=== PATIENT | female | born 1955 | race Caucasian/White ===

== ENCOUNTER → 2020-04-20 | Day surgery (SDC) | payer OTHER ==
[~2020-04-20] VITALS: Ht 149.9 cm; Wt 80.7 kg
[~2020-04-20] MED LIST: ABILIFY 2 MG2 M1 PO; ACETAMINOPHEN-1 EAC2 PO; CETIRIZINE HCL10 MG PO; FLONASE 0.05%50 MCG NARES; METHOCARBAMOL750 MG PO; NEURONTIN 300M300 M2 PO; NORVASC5 MG PO; NYSTATIN 100,0015 G1 TOP; PERIDEX 0.12%473 M1 PO; PRAZOSIN HCL1 MG PO; PRINIVIL20 MG PO; PROTONIX40 M2 PO; ROPINIROLE HCL3 MG PO; SERTRALINE HCL100 MG PO
--- NOTE | ~2020-04-20 | O ---
[facility] [place] [address] OPERATIVE REPORT Name: SAVANA SMITH Room #: REG [facility]#: [id number] Admission: 04/20/20 Attend Phys: Pablito Rothman MD Discharge: Date of : 51 Report #: [id number] THIS REPORT FOR: cc: FAM - Family physician unknown FAM - Family physician unknown Pablito Rothman MD ~ CC: [facility] unknown Caity Rothman DATE OF SERVICE: 04/20/2020 SURGEON: Pabilto Rothman MD PRODUCTION CONTROL PEGBOARD CLERK: None. PREOPERATIVE DIAGNOSIS: Nasolacrimal duct obstruction. POSTOPERATIVE DIAGNOSIS: Nasolacrimal duct obstruction. OPERATIONS PERFORMED: Right-sided incisional dacryocystorhinostomy with silicone intubation and video endoscopy. ANESTHESIA: General. COMPLICATIONS: None. INDICATIONS FOR PROCEDURE: This patient has an acquired nasolacrimal duct obstruction with chronic tearing and discharge. The current procedures are undertaken in order to improve the patient's level of comfort and visual clarity and to reduce the risk of recurrent infection. Informed consent was obtained to include but not limited to the potential risk for loss of vision, bleeding, infection, failure to improve the problem, scarring and the potential need for further surgery. DESCRIPTION OF OPERATION: The patient was taken to the operating room, where general anesthesia was administered. The medial canthal area was then generously infiltrated with 2% Xylocaine with epinephrine mixed with equal parts of 0.75% Marcaine with Wydase. The same anesthetic mixture was then used to anesthetize the lateral wall of the nose. The middle meatus was then packed with Afrin-soaked Cottonoids. The patient was subsequently prepped and draped in the usual sterile fashion. A skin-marking pen was then used to outline an incision over the anterior [facility] [address] [place] [address] OPERATIVE REPORT Name: SARAHSAVANA Room #: [facility] [id number] Admission: 04/20/20 Attend Phys: Pablito Rothman MD Discharge: Date of : 51 Report #: [id number] lacrimal crest inferiorly in the medial canthal area. The incision was then made with a 15 blade. The dissection was then carried down through the soft tissue until the periosteum was identified. Hemostasis was achieved with diligent monopolar cautery. The periosteum was then incised over the anterior lacrimal crest and then gently reflected laterally out of the lacrimal sac fossa. The lacrimal sac was retracted and the thin bone of the lacrimal sac fossa was gently infractured with a hemostat. Multiple rongeur bites were then used to create an osteotomy that was approximately 1.5 cm in diameter. The nasal mucosa was then injected with the same anesthetic mixture used at the beginning of the case. The nasal mucosa was then incised and an anteriorly hinged nasal mucosal flap made. The flap was drawn out of the field with interrupted 4-0 chromic sutures. The puncta were then dilated with a double-ended punctum dilator. Parsons tubes were then passed into the lacrimal sac and its margins were identified. A large anteriorly hinged lacrimal sac flap was subsequently created. The Parsons tubes were passed into the nose on a groove director transnasally. The anterior lacrimal sac flaps and nasal mucosal flaps were closed with interrupted 4-0 chromic sutures. The nasal surgical video endoscope was then brought into the field. The ostium was inspected and found to not be obstructed by the middle turbinate. The ostium was anterior and inferior to the root of the turbinate. There was no evidence of any septal obstruction of the newly created ostium. The subcutaneous structures around the wound were then closed with multiple interrupted 4-0 chromic sutures. The skin was closed with interrupted 6-0 plain gut sutures. The Parsons tubes were then secured to themselves with 3 square throws. The Parsons tubes were then secured to the lateral wall of the nose with a 5-0 Prolene suture. Antibiotic steroid drops were then placed on the surface of the eye and an antibiotic ointment on the incision. Two eye pads were then taped in place. The patient was transported to the recovery area, having tolerated the procedure well with no anesthetic or operative complications being noted. By: [id number] Pablito Rothman MD /nt
[2020-04-20 12:40] VITALS: BP 138/68
== END | disposition home or self-care (01) ==
LOC: OR 09:49
PROVIDERS: ATTEND Ophthalmology
DX: H04.551 Acquired stenosis of right nasolacrimal duct (principal); I10 Essential (primary) hypertension; K21.9 Gastro-esophageal reflux disease without esophagitis; Z98.890 Other specified postprocedural states; Z90.49 Acquired absence of other specified parts of digestive tract; Z79.899 Other long term (current) drug therapy
CPT/HCPCS: 50010; 50101; 50386; 50398; 51636; 51777; 56528; 56531; 62110; 62900; 64037; 70005